=== PATIENT | female | born 1980 | race African-American/Black ===

== ENCOUNTER 2022-10-06 17:49 | Emergency (ER) | payer BC, OTHER ==
[~2022-10-06] VITALS: Ht 160 cm; Wt 70.8 kg
--- NOTE | 2022-10-06 18:18 | NUR ---
Patient triaged and placed in waiting room. VSS and patient appears in no acute distress at this time. Accompanied by ALONE, awaiting available bed, and MD notified of need for MSE.
[2022-10-06] MEDS ORDERED: PENICILLIN G BENZATHINE 1.2 MMU/2 ML SYR IM ONE (19:00)
--- NOTE | 2022-10-06 19:02 | NUR ---
Patient c/o previous rash on back of neck in May,May 2022. Patient took Doxycycline pills months ago. Patient saw primary doctor today and was told to go to "ER to have penicillin shot because the pills were not really working." Patient denies current rash on back. Patient denies having any past medical issues. Will continue to monitor.
--- NOTE | 2022-10-06 19:20 | NUR ---
Penicillin shot administered with Theresa, ERT, at bedside to assist.
[2022-10-06 19:48] VITALS: BP_SYST 142
--- NOTE | 2022-10-06 19:49 | NUR ---
Patient given written and verbal discharge instructions and verbalizes understanding. ER MD discussed with patient the results and treatment provided. Patient in stable condition. ID arm band removed. IV catheter removed intact and dressing applied, no active bleeding. Patient educated on pain management and to follow up with PMD. Opportunity for questions provided and answered. Medication side effect fact sheet provided.
== END 2022-10-06 19:15 | disposition home or self-care (01) ==
LOC: SED 17:49
DX: Z20.2 Contact with and (suspected) exposure to infections with a predominantly sexual mode of transmission (principal); Z79.899 Other long term (current) drug therapy
CPT/HCPCS: 99283; 96372; J0561